=== PATIENT | male | born 1950 | race Caucasian/White ===

== ENCOUNTER 2018-03-16 15:32 | Emergency (ER) | payer MEDICARE, OTHER ==
[~2018-03-16] VITALS: Ht 177.8 cm; Wt 74.8 kg
--- NOTE | 2018-03-16 15:55 | NUR ---
cough congestion and L testicular swelling x 4 days, nad noted, vss, resp even and unlabored, pt was put on monitor, waiting for md silva.
[2018-03-16 16:29] LABS: BASOPHILS % (AUTO) 0.2 % (0.0-2.0); EOSINOPHILS % (AUTO) 0.7 % (0.0-6.0); HEMATOCRIT 34 % (39-51); HEMOGLOBIN 11.6 g/dL (13.5-17.5); LYMPHOCYTES # (AUTO) 0.7 /CMM (0.8-4.8); LYMPHOCYTES % (AUTO) 7.9 % (20.0-44.0); MEAN CORPUSCULAR HGB CONC 35 g/dl (31.0-36.0); MEAN CORPUSCULAR VOLUME 90 fL (80-96); MONOCYTES # (AUTO) 0.5 /CMM (0.1-1.30); MONOCYTES % (AUTO) 5.8 % (2.0-12.0); NEUTROPHILS # (AUTO) 7.6 /CMM (1.8-8.9); NEUTROPHILS % (AUTO) 85.4 % (43.0-81.0); PLATELET COUNT (AUTO) 213 /CMM (150-450); RDW COEFFICIENT OF VARIATION 13.4 (11.5-15.0); RED BLOOD CELL COUNT(AUTO) 3.74 MIL/uL (4.5-6.0); WHITE BLOOD COUNT (AUTO) 8.9 K/uL (4.3-11.0)
[2018-03-16] MEDS ORDERED: ALBUTEROL FS 2.5 MG/3 ML VIAL.NEB NEB ONE (16:30)
[2018-03-16 16:39] LABS: CALCIUM, SERUM 10.8 mg/dL (8.5-10.1); CREATININE 1.7 mg/dL (0.6-1.3); POTASSIUM 4.2 mmol/L (3.5-5.1)
[2018-03-16] MEDS ORDERED: IV NS 0.9% 500 ML BAG IV ONE (17:00)
[2018-03-16] MEDS ORDERED: IV NS 0.9% 1,000 ML BAG IV ONE (17:00)
--- NOTE | 2018-03-16 17:57 | NUR ---
CALLED DR. SUÁREZ
[2018-03-16] MEDS ORDERED: LEVOFLOXACIN 750 MG /D5W 150ML PIGGYBACK IV ONE (18:00)
[2018-03-16 18:07] LABS: APPEARANCE,URINE Clear (CLEAR); BILIRUBIN,URINE Negative (NEGATIVE); BLOOD, URINE Trace-intact Ery/uL (NEGATIVE); COLOR,URINE Yellow (YELLOW); KETONES,URINE Negative (NEGATIVE); LEUKOCYTE ESTERASE ,URINE Small (NEGATIVE); NITRITE, URINE Positive (NEGATIVE); PROTEIN,URINE 30 mg/dl (NEGATIVE); UGLUCOSE Negative (NEGATIVE); UROBILINOGEN,URINE 0.2 EU/dL (0.2)
[2018-03-16] MEDS ORDERED: ALBUTEROL FS 2.5 MG/3 ML VIAL.NEB ONE (18:13)
[2018-03-16 18:34] LABS: BACTERIA,URINE 2+ /HPF (None Seen); SQUAMOUS EPITHELIAL CELL,UR Moderate /HPF (None Seen)
--- NOTE | 2018-03-16 20:17 | NUR ---
Patient discharged to home in stable condition. Written and verbal after care instructions given. Patient verbalizes understanding of instruction.IV removed. Catheter intact and site benign. Pressure and 4x4 applied to site. No bleeding noted. Prescription given.
[2018-03-16 20:19] VITALS: BP 122/70
== END 2018-03-16 20:24 | disposition home or self-care (01) ==
LOC: ER 15:38
DX: J20.9 Acute bronchitis, unspecified (principal); N45.2 Orchitis; I10 Essential (primary) hypertension; Z85.528 Personal history of other malignant neoplasm of kidney
CPT/HCPCS: 36415; 71045; 76870; 80048; 81001; 83880; 85025; 87086; 93005; 94640 ×2; 96365; 99285; A4606; J1956; J7030; J7040; 81000-TC; Z7610

== ENCOUNTER 2020-01-28 10:35 | Emergency (ER) | payer MEDICARE, OTHER ==
[~2020-01-28] VITALS: Ht 175.3 cm; Wt 77.6 kg
[2020-01-28 10:41] VITALS: BP 116/62
== END 2020-01-28 11:19 | disposition home or self-care (01) ==
LOC: ER 10:43
DX: K61.1 Rectal abscess (principal); Z90.5 Acquired absence of kidney

== ENCOUNTER 2020-07-31 22:33 | Inpatient (IN) | payer MEDICARE, OTHER ==
[~2020-07-31] VITALS: Ht 170.2 cm; Wt 70.3 kg
[2020-07-31] MEDS ORDERED: IV NS 0.9% 1,000 ML BAG IV ONE (23:00)
--- NOTE | 2020-07-31 23:00 | NUR ---
PT WAS BIBS TO THE ER FOR C/O WORSENING WAKNESS FOR THE PAST 2 WEAKS. PT DENIED ANY OTHER SYMPTOMS SUCH H/A, DIZZINESS, V/O. PT WAS PLACED ON A MONITOR . VSS. WILL CONT TO MONITOR,
[2020-07-31 23:14] LABS: BASOPHILS % (AUTO) 0.4 % (0.0-2.0); HEMATOCRIT 37 % (39-51); HEMOGLOBIN 12.6 g/dL (13.5-17.5); LYMPHOCYTES # (AUTO) 1.2 /CMM (0.8-4.8); LYMPHOCYTES % (AUTO) 15.1 % (20.0-44.0); MEAN CORPUSCULAR HGB CONC 34 g/dl (31.0-36.0); MEAN CORPUSCULAR VOLUME 96 fL (80-96); MONOCYTES # (AUTO) 0.4 /CMM (0.1-1.30); MONOCYTES % (AUTO) 5.3 % (2.0-12.0); NEUTROPHILS # (AUTO) 6.1 /CMM (1.8-8.9); NEUTROPHILS % (AUTO) 76.2 % (43.0-81.0); PLATELET COUNT (AUTO) 195 /CMM (150-450); RED BLOOD CELL COUNT(AUTO) 3.89 MIL/uL (4.5-6.0)
[2020-07-31 23:29] LABS: CARBON DIOXIDE 29 mmol/L (21-32); CHLORIDE 98 mmol/L (98-107); CREATININE 3.3 mg/dL (0.6-1.3); GLUCOSE 122 mg/dL (74-106); POTASSIUM 4.4 mmol/L (3.5-5.1); SODIUM SERUM 134 mmol/L (136-145); UREA NITROGEN, BLOOD 78 mg/dL (7-18)
[2020-07-31 23:36] LABS: CALCIUM, SERUM 14.1 mg/dL (8.5-10.1)
[2020-07-31 23:51] LABS: ALBUMIN 3.5 g/dL (3.4-5.0); BILIRUBIN,DIRECT 0.1 mg/dL (0.0-0.2); BILIRUBIN,TOTAL 0.3 mg/dL (0.2-1.0)
--- NOTE | 2020-08-01 00:08 | NUR ---
COVID SWAB OBTAINED AND SENT TO LAB
--- NOTE | 2020-08-01 00:11 | NUR ---
PT WAS TAKEN TO CT
[2020-08-01] MEDS ORDERED: IV NS 0.9% 1,000 ML IV ONE (00:30)
--- NOTE | 2020-08-01 00:41 | NUR ---
BED ASSIGNMENT 314-2
--- NOTE | 2020-08-01 01:05 | NUR ---
REPORT GIVEN TO VAIBHAV,
[2020-08-01 01:36] VITALS: BP 158/85
[2020-08-01 01:40] VITALS: BP 155/85
--- NOTE | 2020-08-01 01:40 | NUR ---
rn ms admitting opening notes received patient from er via gurney safely ambulated to bed steady gait. alert and oriented x4, respirations even and unlabored with equal rise and fall of chest, denies any pain or discomfort, states he feel generalized weakness and lethargy the past couple days. iv site to right ac #18 g intact and patent, received with 1l normal saline infusing from ER ,will continue to infuse until completed.denies any skin issues or wounds, patient belongings checked and logged in belongings list, he has rich with him and prefers to keep it with him and not place in safe made aware of risks prefers to keep it with his wallet. pocket knife placed in 3w in safe. patient states he refuses all medications, lovenox refused despite education, oriented to staff and call light and kept within reach, all needs attended will continue to monitor and attend to needs, remains comfortable at this time.
[2020-08-01] MEDS ORDERED: IV 1/2NS 1000 ML 1,000 ML IV PRN (01:45)
--- NOTE | 2020-08-01 01:58 | NUR ---
[facility].
[2020-08-01] MEDS ORDERED: MAG HYDROX/AL HYDROX/SIMETH 30 ML UDC PO PRN (02:00)
[2020-08-01] MEDS ORDERED: ACETAMINOPHEN 325 MG TABLET PO PRN (02:00)
[2020-08-01] MEDS ORDERED: ZOLPIDEM TARTRATE 5 MG TABLET PO PRN (02:00)
[2020-08-01] MEDS ORDERED: Z GUARD REMEDY 2 OZ OINT TP PRN (02:00)
[2020-08-01] MEDS ORDERED: ONDANSETRON HCL/PF 4 MG/2 ML VIAL IVP PRN (02:00)
[2020-08-01] MEDS ORDERED: MAGNESIUM HYDROXIDE 30 ML UDC PO PRN (02:00)
[2020-08-01] MEDS ORDERED: HYDROCODONE/APAP 5/325MG TABLET PO PRN (02:00)
[2020-08-01] MEDS: ENOXAPARIN SODIUM 30 MG/0.3 ML DISP.SYRIN SQ SCH ×2 (02:30→21:00)
--- NOTE | 2020-08-01 07:20 | NUR ---
rn CLOSING notes patient in bed easily arousable, steady gait. alert and oriented x4, respirations even and unlabored with equal rise and fall of chest, denies any pain or discomfort, iv site to right ac #18 g intact and patent, received with 1l normal saline infusing from ER and still infusing endorsed to next shift. will continue to infuse until completed.denies any skin issues or wounds, has rich with him and prefers to keep it with him and not place in safe made aware of risks prefers to keep it with his wallet. pocket knife placed in 3w in safe call light kept within reach, all needs attended will continue to monitor and attend to needs, remains comfortable at this time and will endorse to next shift.
[2020-08-01] MEDS: PANTOPRAZOLE 40 MG TABLET.DR PO SCH (07:30)
--- NOTE | 2020-08-01 07:41 | NUR ---
MS RN NOTES PATIENT RECEIVED IN BED, RESTING COMFORTABLY. ALERT AND ORIENTED X 4. ON ROOM AIR WITH NO SIGNS OF RESPIRATORY DISTRESS AT THIS TIME, WITH EVEN NON-LABORED BREATHING, AND NO SOB NOTED. PATIENT SKIN WARM AND DRY TO TOUCH, IV ACCESS INTACT AND PATENT. PATIENT DENIES ANY PAIN OR DISCOMFORT AT THIS TIME. ENDORSE BY NURSE, PATIENT POCKET KNIFE IN SAFE AT NURSING STATION. PATIENT WOULD RATHER KEEP MONEY WITH HIM RATHER THAN IN SAFE. SAFETY PRECAUTIONS IMPLEMENTED WITH BED LOCKED, BED IN THE LOWEST POSITION, BILATERAL SIDE RAILS UP, AND CALL LIGHT WITHIN EASY REACH. WILL CONTINUE TO MONITOR PATIENT.
--- NOTE | 2020-08-01 08:10 | NUR ---
MS RN NOTES PATIENT REFUSED PROTONIX 40 mg po ORDERED, STATES HE DOES NOT WANT TO TAKE ANY MEDICATION. EDUCATED THE PATIENT THE BENEFITS OF THE MEDICATIONS, PATIENT STILL REFUSED. WILL CONTINUE TO MONITOR PATIENT.
[2020-08-01 08:53] VITALS: BP 121/71
--- NOTE | 2020-08-01 11:15 | NUR ---
MS RN NOTES PATIENT SEEN AND EXAMINED BY HOSPITALIST, MAT MIDDLETON DNP. PATIENT DISCUSSES CODE STATUS WITH HOSPITALIST, PER PATIENT WISHES DNR/DNI CODE STATUS. AWARE AND POLST IN PATIENT CHART. WILL CONTINUE TO MONITOR PATIENT.
--- NOTE | 2020-08-01 16:26 | NUR ---
12:45pm This SW met with the patient at bedside for advanced directive, code status and living will consult requested by Beatriz Vázquez DO. Patient presented to [facility] complaining of generalized weakness for the past two weeks. Patient was alert and oriented x4. Patient is a 69-year-old male who confirmed demographics on the face sheet including date of , social security, and home address. Patient resides with sister Kaela who is the patients primary contact. Patient reports that he is able to perform ADLs and IADLs independently. Patient currently receives $900 in Social Security. Patient reports moderate alcohol use and did not want to elaborate when this SW asked. Patient denies drug and cigarette use. Patient denies auditory and visual hallucinations. Patient denies suicidal or homicidal ideation. This SW provided the patient with resource of [facility] Directive Form for patient to review. This SW informed the patient that it is a form to provide instructions of his health wishes. This SW to remain available for all needs regarding this patient
[2020-08-01 16:55] VITALS: BP 147/82
--- NOTE | 2020-08-01 18:25 | NUR ---
MS RN NOTES PATIENT IN BED, WATCHING TV COMFORTABLY. ALERT AND ORIENTED X 4. ON ROOM AIR WITH NO SIGNS OF RESPIRATORY DISTRESS AT THIS TIME, WITH EVEN NON-LABORED BREATHING, AND NO SIGNS OF SOB NOTED AT THIS TIME. PATIENT SKIN WARM AND DRY TO TOUCH. IV ACCESS INTACT AND PATENT, INFUSING IV NORMAL SALINE 0.45% AT 75ml/hr. MET ALL OF PATIENT'S NEEDS, DENIES PAIN OR DISCOMFORT AT THIS TIME. SAFETY PRECAUTIONS IMPLEMENTED WITH BED LOCKED, BED IN THE LOWEST POSITION, BILATERAL SIDE RAILS UP, AND CALL LIGHT WITHIN EASY REACH OF THE PATIENT. WILL ENDORSE PLAN OF CARE TO UPCOMING NURSE.
--- NOTE | 2020-08-01 19:05 | NUR ---
rn opening notes patient in bed easily arousable, steady gait. alert and oriented x4, respirations even and unlabored with equal rise and fall of chest, denies any pain or discomfort, iv site to right ac #18 g intact and patent, ivf infusing as ordered .denies any skin issues or wounds, oriented to to staff and call light kept within reach, all needs attended will continue to monitor and attend to needs, remains comfortable at this time and will continue to monitor.
[2020-08-01 20:00] VITALS: BP_SYST 137; BP_SYST 157; BP_DIAS 81
--- NOTE | 2020-08-01 21:01 | NUR ---
RN MS NOTES PATIENT REFUSED LOVENOX.
--- NOTE | 2020-08-01 22:23 | NUR ---
rn ms notes patient requested shower made aware. new order ok to shower.
[2020-08-01] MEDS: IV 1/2NS 1000 ML 1,000 ML IV PRN (22:48)
--- NOTE | 2020-08-02 06:46 | NUR ---
rn closing notes patient in bed easily arousable, steady gait. alert and oriented x4, respirations even and unlabored with equal rise and fall of chest, denies any pain or discomfort, iv site to right ac #18 g intact and patent, ivf infusing as ordered .denies any skin issues or wounds, call light kept within reach, all needs attended will continue to monitor and attend to needs, remains comfortable at this time and will continue to monitor and endorse to next shift.
[2020-08-02 07:19] LABS: BASOPHILS % (AUTO) 0.3 % (0.0-2.0); HEMATOCRIT 36 % (39-51); HEMOGLOBIN 11.9 g/dL (13.5-17.5); LYMPHOCYTES % (AUTO) 19.2 % (20.0-44.0); MEAN CORPUSCULAR HGB CONC 33 g/dl (31.0-36.0); MEAN CORPUSCULAR VOLUME 97 fL (80-96); MONOCYTES # (AUTO) 0.3 /CMM (0.1-1.30); MONOCYTES % (AUTO) 5.7 % (2.0-12.0); NEUTROPHILS # (AUTO) 3.7 /CMM (1.8-8.9); NEUTROPHILS % (AUTO) 70.8 % (43.0-81.0); PLATELET COUNT (AUTO) 167 /CMM (150-450); RED BLOOD CELL COUNT(AUTO) 3.68 MIL/uL (4.5-6.0); WHITE BLOOD COUNT (AUTO) 5.3 K/uL (4.3-11.0)
[2020-08-02] MEDS: PANTOPRAZOLE 40 MG TABLET.DR PO SCH (07:30)
--- NOTE | 2020-08-02 07:30 | NUR ---
CORRECTION: 1/2 NS running 150 mls/hr
--- NOTE | 2020-08-02 07:30 | NUR ---
MS/RN OPENING NOTES Patient resting in bed, A&O x 4. Breathing even and non-labored on RA, no SOB noted. No respiratory or cardiac distress noted. Denies any pain and discomfort at the moment. IV access on R AC #18 gauge, patent and intact, and running 1/2 NS @ 75 mls/hr. No infection, infiltration, or bleeding noted on site. Sensation from all peripheral extremities intact. Fall precautions maintained. Instructed pt to use call light when in need of assistance. Will continue to monitor for any changes in condition.
[2020-08-02 07:33] LABS: CREATININE 2.8 mg/dL (0.6-1.3); MAGNESIUM 2.1 mg/dL (1.8-2.4); PHOSPHORUS 4.1 mg/dL (2.5-4.9); POTASSIUM 4.5 mmol/L (3.5-5.1)
[2020-08-02 07:44] LABS: THYROID STIMULATING HORMONE 2.504 uIU/mL (0.358-3.74)
[2020-08-02 08:00] VITALS: BP 105/62
[2020-08-02] MEDS: IV 1/2NS 1000 ML 1,000 ML IV PRN ×2 (09:01→17:18)
[2020-08-02] MEDS ORDERED: FUROSEMIDE 100 MG/10 ML VIAL IV ONE (10:30)
--- NOTE | 2020-08-02 18:30 | NUR ---
MS/RN CLOSING NOTES Patient lying in bed, watching TV, A&O x 4. No complaints of pain/discomfort throughout shift. Remains stable, VSS, afebrile. Breathing even and non-labored on RA, no SOB noted. No respiratory or cardiac distress noted. IV access on R AC #18 gauge, remains patent and intact, and running 1/2 NS @ 150 mls/hr. Call light within reach, side rails up x 2, bed locked to its lowest position. Instructed pt to use call light when in need of assistance. Will endorse to retail shift leader nurse.
--- NOTE | 2020-08-02 19:30 | NUR ---
MS/RN OPENING NOTES RECEIVED PATIENT IN BED RESTING WATCHING TV. PATIENT IS ALERT AND ORIENTED X 4. NO COMPLAINS OF PAIN AT THIS TIME. PATIENT IS ON ROOM AIR TOLERATING WELL. NO SIGNS OF SOB OR RESPIRATORY DISTRESS NOTED. PATIENT IS IN NO SIGNS OF DISTRESS. PATIENT IS ABLE TO AMBULATE BY SELF. PATIENT HAS RIGHT IV AC #[address] RUNNING 1/2 NS AT 150 ML/HR. SAFETY MEASURES ARE IN PLACE, BED IS LOCKED AND PLACED IN THE LOW POSITION, SIDE RAILS UP X 2. CALL LIGHT IS WITHIN REACH. WILL CONTINUE TO MONITOR PATIENT THROUGH OUT SHIFT.
[2020-08-02 20:00] VITALS: BP 109/71
[2020-08-02] MEDS: ENOXAPARIN SODIUM 30 MG/0.3 ML DISP.SYRIN SQ SCH (21:00)
[2020-08-03 06:18] LABS: BASOPHILS % (AUTO) 0.4 % (0.0-2.0); EOSINOPHILS % (AUTO) 4.7 % (0.0-6.0); HEMATOCRIT 34 % (39-51); HEMOGLOBIN 11.4 g/dL (13.5-17.5); LYMPHOCYTES # (AUTO) 1.4 /CMM (0.8-4.8); LYMPHOCYTES % (AUTO) 19.5 % (20.0-44.0); MEAN CORPUSCULAR HGB CONC 34 g/dl (31.0-36.0); MEAN CORPUSCULAR VOLUME 96 fL (80-96); MONOCYTES # (AUTO) 0.4 /CMM (0.1-1.30); MONOCYTES % (AUTO) 5.8 % (2.0-12.0); NEUTROPHILS # (AUTO) 4.9 /CMM (1.8-8.9); NEUTROPHILS % (AUTO) 69.6 % (43.0-81.0); PLATELET COUNT (AUTO) 176 /CMM (150-450); RED BLOOD CELL COUNT(AUTO) 3.52 MIL/uL (4.5-6.0)
[2020-08-03 06:43] LABS: ALBUMIN 2.9 g/dL (3.4-5.0); BILIRUBIN,TOTAL 0.2 mg/dL (0.2-1.0); CREATININE 2.9 mg/dL (0.6-1.3); MAGNESIUM 1.9 mg/dL (1.8-2.4); PHOSPHORUS 3.5 mg/dL (2.5-4.9); POTASSIUM 4.2 mmol/L (3.5-5.1)
--- NOTE | 2020-08-03 06:51 | NUR ---
MS/RN CLOSING NOTES PATIENT IS RESTING IN BED. PATIENT IS ALERT AND ORIENTED X 4. PATIENT STATES NO PAIN AT THIS TIME. PATIENT IS ON ROOM AIR TOLERATING WELL. NO SIGNS OF SOB OR RESPIRATORY DISTRESS NOTED. PATIENT IS IN NO SIGNS OF DISTRESS. PATIENT IS ABLE TO AMBULATE BY SELF. PATIENT HAS RIGHT IV AC #[address] RUNNING 1/2 NS AT 150 ML/HR. ALL OF THE PATINETS NEEDS HAVE BEEN MET DURING SHIFT. SAFETY MEASURES ARE IN PLACE, BED IS LOCKED AND PLACED IN THE LOW POSITION, SIDE RAILS UP X 2. CALL LIGHT IS WITHIN REACH. WILL ENDORSE CARE TO DAY SHIFT.
[2020-08-03] MEDS: PANTOPRAZOLE 40 MG TABLET.DR PO SCH ×2 (07:30→09:18)
[2020-08-03 08:00] VITALS: BP 106/63
--- NOTE | 2020-08-03 10:00 | NUR ---
IV LEAKING,PT. DID NOT WANT RESTARTED.
--- NOTE | 2020-08-03 11:30 | NUR ---
BILL CERTIFICATION OFFICER IN TO VISIT.
[2020-08-03 16:00] VITALS: BP 126/78
[2020-08-03] MEDS ORDERED: CALCITONIN,SALMON,SYNTHETIC 3.7 ML SPRAY.PUMP NS SCH (16:00)
[2020-08-03] MEDS ORDERED: CALC3.7S NS (16:01)
--- NOTE | 2020-08-03 17:00 | NUR ---
DR. BERRIOS AND PT'S SISTER CALLING [facility] ORDER GIVEN.PAPERS SIGNED.BELONGINGS TO PT. TO FOLLOW UP WITH MD'S.WALKED TO LOBBY.PT. TO DRIVE HIMSELF HOME.
[2020-08-04 08:08] LABS: IMMUNOGLOBULIN A, SERUM 94 mg/dL (61-437); IMMUNOGLOBULIN G, SERUM 602 mg/dL (603-1613); IMMUNOGLOBULIN M, SERUM 37 mg/dL (20-172)
[2020-08-04 14:09] LABS: *SPE A/G RATIO 1.3 (0.7-1.7); *SPE ALBUMIN 3.1 g/dL (2.9-4.4); *SPE ALPHA-1-GLOBULIN 0.2 g/dL (0.0-0.4); *SPE ALPHA-2-GLOBULIN 0.7 g/dL (0.4-1.0); *SPE BETA GLOBULIN 0.9 g/dL (0.7-1.3); *SPE GLOBULIN, TOTAL 2.3 g/dL (2.2-3.9); *SPE M-SPIKE Not Observed g/dL (Not Observed); *SPEGAMMA GLOBULIN 0.5 g/dL (0.4-1.8)
== END 2020-08-03 17:48 | disposition home or self-care (01) | DRG 640 ==
LOC: ER 22:37 → MED 08-01 00:45
PROVIDERS: ADMIT Nurse Practitioner Acute Care; ATTEND Nurse Practitioner Acute Care
DX: E83.52 Hypercalcemia (principal); N17.0 Acute kidney failure with tubular necrosis; C78.02 Secondary malignant neoplasm of left lung; C78.01 Secondary malignant neoplasm of right lung; C79.51 Secondary malignant neoplasm of bone; C77.9 Secondary and unspecified malignant neoplasm of lymph node, unspecified; Z85.528 Personal history of other malignant neoplasm of kidney; E86.9 Volume depletion, unspecified; D64.9 Anemia, unspecified; I25.10 Atherosclerotic heart disease of native coronary artery without angina pectoris; E67.3 Hypervitaminosis D; Z90.5 Acquired absence of kidney; R53.1 Weakness; J44.9 Chronic obstructive pulmonary disease, unspecified; R91.1 Solitary pulmonary nodule; G56.20 Lesion of ulnar nerve, unspecified upper limb
CPT/HCPCS: 36415; 71045-TC; 71250-TC; 80048-TC; 80053-TC; 80061-TC; 80076-TC; 82306; 82310-TC; 82330; 82652; 82728-TC; 82784; 83540-TC; 83735-TC; 83970; 84100-TC; 84155; 84165; 84443-TC; 84484-TC; 85025-TC; 86334; 87081-TC; 97116-TC; 97530-TC; C9803-CS; G0378; J1940; J3490; J7030; J7042

== ENCOUNTER 2022-04-05 14:23 | Emergency (ER) | payer MEDICARE, OTHER ==
[~2022-04-05] VITALS: Ht 177.8 cm; Wt 79.4 kg
[~2022-04-05 14:23] MED LIST: CALC3.7S NS
--- NOTE | 2022-04-05 14:32 | NUR ---
Came by himself this 71yo/male patient with c/o left shoulder pain while doing exercise 10/10 pain scale. Placed comfortably in bed. Vitals checked.
--- NOTE | 2022-04-05 14:42 | NUR ---
SEEN BY DR COOK AT BEDSIDE
--- NOTE | 2022-04-05 14:47 | NUR ---
XRAY DONE AT BEDSIDE.
[2022-04-05] MEDS ORDERED: IBUPROFEN 600 MG TABLET ONE (14:53)
--- NOTE | 2022-04-05 14:57 | NUR ---
COLD PACK APPLIED ON AFFECTED AREA
[2022-04-05] MEDS ORDERED: IBUPROFEN 600 MG TABLET PO ONE (15:00)
[2022-04-05] MEDS ORDERED: IBUP-1955 PO (15:19)
--- NOTE | 2022-04-05 15:36 | NUR ---
Patient discharged to home in stable condition. Written and verbal after care instructions given. Patient verbalizes understanding of instruction.
[2022-04-05 15:37] VITALS: BP 142/81
== END 2022-04-05 15:38 | disposition home or self-care (01) ==
LOC: ER 14:30
DX: M25.512 Pain in left shoulder (principal); Z85.53 Personal history of malignant neoplasm of renal pelvis; Z90.5 Acquired absence of kidney; Z79.899 Other long term (current) drug therapy
CPT/HCPCS: 73030-TC

== ENCOUNTER 2022-12-11 12:34 | Inpatient (IN) | payer MEDICARE, OTHER ==
[~2022-12-11] VITALS: Ht 177.8 cm; Wt 83.0 kg
[~2022-12-11 12:34] MED LIST changes: +IBUP-1955 PO
[2022-12-11] MEDS ORDERED: predniSONE 20 MG TABLET ONE (13:26)
[2022-12-11] MEDS ORDERED: IPRATROPIUM NEB FS 0.5 MG/2.5 ML AMPUL.NEB NEB ONE (13:30)
[2022-12-11] MEDS ORDERED: predniSONE 20 MG TABLET PO ONE (13:30)
[2022-12-11] MEDS ORDERED: ALBUTEROL FS 2.5 MG/3 ML VIAL.NEB CONTNEB ONE (13:30)
[2022-12-11 13:46] LABS: ABG BASE EXCESS -1.6 mmol/L; ABG OXYGEN SATURATION 97.7 % (92.0-98.5); ABG PCO2 32.8 mmHg (35.0-45.0); ABG PH 7.435 (7.350-7.450); ABG PO2 96.9 mmHg (75.0-100.0); COHb 1.3 % (0.5-1.5); MetHb 0.3 % (0.0-1.5); O2Hb 96.1 % (94.0-97.0); SITE, ABG Right Radial; VENT MODE, BG 2L NC
[2022-12-11 13:56] LABS: BASOPHILS % (AUTO) 0.2 % (0.0-2.0); HEMATOCRIT 52 % (39-51); HEMOGLOBIN 16.8 g/dL (13.5-17.5); LYMPHOCYTES # (AUTO) 0.4 K/uL (0.8-4.8); LYMPHOCYTES % (AUTO) 5.1 % (20.0-44.0); MEAN CORPUSCULAR HGB CONC 33 g/dl (31.0-36.0); MEAN CORPUSCULAR VOLUME 88 fL (80-96); MONOCYTES # (AUTO) 0.8 K/uL (0.1-1.30); MONOCYTES % (AUTO) 9.8 % (2.0-12.0); NEUTROPHILS # (AUTO) 6.8 K/uL (1.8-8.9); NEUTROPHILS % (AUTO) 81.9 % (43.0-81.0); PLATELET COUNT (AUTO) 152 K/uL (150-450); RED BLOOD CELL COUNT(AUTO) 5.91 MIL/uL (4.5-6.0); WHITE BLOOD COUNT (AUTO) 8.4 K/uL (4.3-11.0)
[2022-12-11] MEDS ORDERED: IPRATROPIUM NEB FS 0.5 MG/2.5 ML AMPUL.NEB ONE (14:12)
[2022-12-11] MEDS ORDERED: ALBUTEROL FS 2.5 MG/3 ML VIAL.NEB ONE (14:12)
[2022-12-11] MEDS ORDERED: FUROSEMIDE 40 MG/4 ML VIAL IV ONE (14:30)
[2022-12-11 14:52] LABS: CALCIUM, SERUM 8.5 mg/dL (8.5-10.1); CARBON DIOXIDE 24 mmol/L (21-32); CHLORIDE 106 mmol/L (98-107); CREATININE 1.3 mg/dL (0.6-1.3); GLUCOSE 119 mg/dL (74-106); POTASSIUM 3.9 mmol/L (3.5-5.1); SODIUM SERUM 137 mmol/L (136-145); UREA NITROGEN, BLOOD 39 mg/dL (7-18)
[2022-12-11] MEDS ORDERED: FUROSEMIDE 40 MG/4 ML VIAL ONE (15:00)
[2022-12-11 15:19] LABS: ALANINE AMINOTRANSFERASE 73 U/L (12-78); ALBUMIN 2.9 g/dL (3.4-5.0); ALKALINE PHOSPHATASE 69 U/L (46-116); ASPARTATE AMINOTRANSFERASE 54 U/L (15-37); BILIRUBIN,DIRECT 0.1 mg/dL (0.0-0.2); BILIRUBIN,TOTAL 0.6 mg/dL (0.2-1.0); TOTAL PROTEIN, SERUM 6.6 g/dL (6.4-8.2)
[2022-12-11] MEDS ORDERED: IOHEXOL-350 100 ML VIAL IV ONE (15:30)
[2022-12-11] MEDS ORDERED: IV NS 0.9% 250 ML IV ONE (15:30)
[2022-12-11] MEDS ORDERED: HEPARIN INFUSION/D5W 500 ML IV ONE (17:30)
[2022-12-11] MEDS ORDERED: ONDANSETRON HCL/PF 4 MG/2 ML VIAL IVP PRN (18:30)
[2022-12-11] MEDS ORDERED: ACETAMINOPHEN 325 MG TABLET PO PRN (18:30)
[2022-12-11] MEDS ORDERED: MORPHINE SULFATE INJ 2 MG/ML DISP.SYRIN IV PRN (18:30)
[2022-12-11] MEDS ORDERED: ALBUTEROL FS 2.5 MG/0.5 ML VIAL.NEB NEB PRN (20:00)
[2022-12-11 22:25] VITALS: BP 137/88
[2022-12-11] MEDS ORDERED: CEFEPIME 1 GM VIAL ONE ×2 (22:58→23:01)
[2022-12-11] MEDS: APIXABAN 5 MG TABLET PO SCH (23:04)
[2022-12-11] MEDS: CEFEPIME 2 GM in IV D5W 100 ML IV SCH (23:08)
[2022-12-12] VITALS: BP 112/80
[2022-12-12] MEDS ORDERED: IPRATROPIUM/ALBUTEROL INHALER IH SCH
[2022-12-12] MEDS ORDERED: TEMAZEPAM 7.5 MG CAPSULE PO PRN (00:30)
[2022-12-12 04:00] VITALS: BP 115/67
[2022-12-12] MEDS: CEFEPIME 2 GM in IV D5W 100 ML IV SCH (04:46)
[2022-12-12 06:49] LABS: BASOPHILS % (AUTO) 0.2 % (0.0-2.0); EOSINOPHILS % (AUTO) 0.7 % (0.0-6.0); HEMATOCRIT 49 % (39-51); HEMOGLOBIN 16.3 g/dL (13.5-17.5); LYMPHOCYTES # (AUTO) 0.5 K/uL (0.8-4.8); MEAN CORPUSCULAR HGB CONC 34 g/dl (31.0-36.0); MEAN CORPUSCULAR VOLUME 87 fL (80-96); MONOCYTES # (AUTO) 1.1 K/uL (0.1-1.30); MONOCYTES % (AUTO) 10.9 % (2.0-12.0); NEUTROPHILS # (AUTO) 8.1 K/uL (1.8-8.9); NEUTROPHILS % (AUTO) 83.2 % (43.0-81.0); PLATELET COUNT (AUTO) 168 K/uL (150-450); WHITE BLOOD COUNT (AUTO) 9.7 K/uL (4.3-11.0)
[2022-12-12 07:00] VITALS: BP 116/84
[2022-12-12 07:01] LABS: ALBUMIN 2.6 g/dL (3.4-5.0); BILIRUBIN,TOTAL 0.4 mg/dL (0.2-1.0); CALCIUM, SERUM 8.4 mg/dL (8.5-10.1); CREATININE 1.3 mg/dL (0.6-1.3); MAGNESIUM 1.9 mg/dL (1.8-2.4); PHOSPHORUS 3.2 mg/dL (2.5-4.9); POTASSIUM 3.3 mmol/L (3.5-5.1); TOTAL PROTEIN, SERUM 6.4 g/dL (6.4-8.2)
[2022-12-12] MEDS: APIXABAN 5 MG TABLET PO SCH (08:12)
[2022-12-12] MEDS: IPRATROPIUM NEB FS 0.5 MG/2.5 ML AMPUL.NEB NEB SCH ×2 (08:55→09:55)
[2022-12-12] MEDS ORDERED: CEFEPIME 2 GM in IV D5W 100 ML IV SCH ×2 (09:00→21:00)
[2022-12-12] MEDS ORDERED: ALBU18HF2 INH (10:17)
[2022-12-12] MEDS ORDERED: APIX5TAB4 PO (10:17)
[2022-12-12] MEDS ORDERED: POTASSIUM CHLORIDE 20 MEQ TAB.PRT.SR PO SCH (11:00)
== END 2022-12-12 10:45 | disposition home or self-care (01) | DRG 176 ==
LOC: ER 12:38 → TELE 21:31
PROVIDERS: ADMIT Internal Medicine; ATTEND Internal Medicine
DX: I26.99 Other pulmonary embolism without acute cor pulmonale (principal); E44.1 Mild protein-calorie malnutrition; Z85.528 Personal history of other malignant neoplasm of kidney; Z20.822 Contact with and (suspected) exposure to COVID-19; E88.09 Other disorders of plasma-protein metabolism, not elsewhere classified; Z85.118 Personal history of other malignant neoplasm of bronchus and lung; Z79.899 Other long term (current) drug therapy
CPT/HCPCS: 36415; 36600; 71045-TC; 80048-TC; 80053-TC; 80076-TC; 82803-TC; 83735-TC; 83880; 84100-TC; 84484-TC; 85025-TC; 85378-TC; 85610-TC; 85730-TC; 87081-TC; 93307-TC; C9803; G0378; J0692; J1644; J1940; J7050; J7060; Q9967

== ENCOUNTER 2024-03-23 20:14 | Inpatient (IN) | payer MEDICARE, OTHER ==
[~2024-03-23] VITALS: Ht 177.8 cm; Wt 99.3 kg
[~2024-03-23 20:14] MED LIST changes: +ALBU18HF2 INH; +APIX5TAB4 PO
[2024-03-23 22:34] LABS: EOSINOPHILS % (AUTO) 0.3 % (0.0-6.0); HEMATOCRIT 47 % (39-51); HEMOGLOBIN 15.5 g/dL (13.5-17.5); LYMPHOCYTES # (AUTO) 0.5 K/uL (0.8-4.8); LYMPHOCYTES % (AUTO) 2.8 % (20.0-44.0); MEAN CORPUSCULAR HEMOGLOBIN 31 PG (26.0-33.0); MEAN CORPUSCULAR HGB CONC 33 g/dl (31.0-36.0); MEAN CORPUSCULAR VOLUME 93 fL (80-96); MONOCYTES # (AUTO) 1.6 K/uL (0.1-1.30); MONOCYTES % (AUTO) 8.9 % (2.0-12.0); NEUTROPHILS # (AUTO) 15.7 K/uL (1.8-8.9); PLATELET COUNT (AUTO) 192 K/uL (150-450); RED BLOOD CELL COUNT(AUTO) 5.01 MIL/uL (4.5-6.0); RED CELL DISTRIBUTION WIDTH 13.7 % (11.5-15.0); WHITE BLOOD COUNT (AUTO) 17.9 K/uL (4.3-11.0)
[2024-03-23 23:06] LABS: CALCIUM, SERUM 10.2 mg/dL (8.5-10.1); CARBON DIOXIDE 30 mmol/L (21-32); CHLORIDE 103 mmol/L (98-107); CREATININE 1.9 mg/dL (0.6-1.3); GLUCOSE 154 mg/dL (74-106); POTASSIUM 4.9 mmol/L (3.5-5.1); SODIUM SERUM 137 mmol/L (136-145); UREA NITROGEN, BLOOD 41 mg/dL (7-18)
[2024-03-23] MEDS: ALBUTEROL FS 2.5 MG/3 ML VIAL.NEB NEB ONE (23:14)
[2024-03-23 23:15] VITALS: O2SAT 91
[2024-03-23] MEDS ORDERED: ALBUTEROL FS 2.5 MG/3 ML VIAL.NEB ONE (23:15)
[2024-03-23 23:22] LABS: NT-PRO BNP 471 pg/mL (0-125)
[2024-03-23 23:30] VITALS: O2SAT 95
[2024-03-24] VITALS (7 sets, daily range): BP systolic 113–125; BP diastolic 79–85; TEMP 98.1–98.6; O2SAT 91–96
[2024-03-24 00:44] LABS: ABG BASE EXCESS 1.4 mmol/L; ABG OXYGEN SATURATION 89.3 % (92.0-98.5); ABG PCO2 37.5 mmHg (35.0-45.0); ABG PH 7.445 (7.350-7.450); ABG PO2 54.5 mmHg (75.0-100.0); ABG TOTAL HEMOGLOBIN 16.2 G/dL (13.5-18.0); COHb 0.9 % (0.5-1.5); MetHb 0.3 % (0.0-1.5); O2Hb 88.2 % (94.0-97.0); SITE, ABG Right Radial
[2024-03-24] MEDS ORDERED: CEFTRIAXONE 1GM BAG (ER ONLY) 50 ML IV ONE (01:29)
[2024-03-24] MEDS: CEFTRIAXONE 1 G in IV D5W 50 ML IV ONE (01:40)
[2024-03-24] MEDS ORDERED: FUROSEMIDE 40 MG/4 ML VIAL ONE (01:57)
[2024-03-24] MEDS: FUROSEMIDE 40 MG/4 ML VIAL IV ONE (02:02)
[2024-03-24] MEDS ORDERED: MORPHINE SULFATE INJ 2 MG/ML DISP.SYRIN IV PRN (03:00)
[2024-03-24] MEDS ORDERED: ACETAMINOPHEN 325 MG TABLET PO PRN (03:00)
[2024-03-24] MEDS ORDERED: ALBUTEROL FS 2.5 MG/0.5 ML VIAL.NEB NEB PRN (03:00)
[2024-03-24] MEDS ORDERED: hydrALAZINE HCL IV 20 MG VIAL IV PRN (03:00)
[2024-03-24] MEDS ORDERED: ONDANSETRON HCL/PF 4 MG/2 ML VIAL IVP PRN (03:00)
[2024-03-24] MEDS: ALBUTEROL FS 2.5 MG/0.5 ML VIAL.NEB NEB SCH (07:35)
[2024-03-24] MEDS: IPRATROPIUM NEB FS 0.5 MG/2.5 ML AMPUL.NEB NEB SCH (07:35)
[2024-03-24] MEDS ORDERED: [UNRECOGNIZED DRUG - OTHER] PO (07:58)
[2024-03-24] MEDS ORDERED: TEST200V3 IM (07:58)
[2024-03-24] MEDS: APIXABAN 5 MG TABLET PO SCH (09:06)
[2024-03-24] MEDS: CEFEPIME 2 GM in IV D5W 100 ML IV SCH (09:09)
[2024-03-24] MEDS: VANCOMYCIN HCL 1.25 GM in IV D5W 250 ML IV ONE (09:10)
[2024-03-24] MEDS: LEVOFLOXACIN 750 MG /D5W 150ML 150 ML IV SCH (11:02)
[2024-03-25] VITALS (18 sets, daily range): BP systolic 106–123; BP diastolic 75–85; TEMP 97–98.1; O2SAT 83–100
[2024-03-25 07:46] LABS: BASOPHILS % (AUTO) 0.1 % (0.0-2.0); EOSINOPHILS # (AUTO) 0.1 K/uL (0.0-0.7); EOSINOPHILS % (AUTO) 0.4 % (0.0-6.0); HEMATOCRIT 45 % (39-51); HEMOGLOBIN 14.7 g/dL (13.5-17.5); LYMPHOCYTES # (AUTO) 0.8 K/uL (0.8-4.8); LYMPHOCYTES % (AUTO) 5.5 % (20.0-44.0); MEAN CORPUSCULAR HEMOGLOBIN 31 PG (26.0-33.0); MEAN CORPUSCULAR HGB CONC 33 g/dl (31.0-36.0); MEAN CORPUSCULAR VOLUME 93 fL (80-96); MONOCYTES # (AUTO) 1.4 K/uL (0.1-1.30); MONOCYTES % (AUTO) 9.5 % (2.0-12.0); NEUTROPHILS % (AUTO) 84.5 % (43.0-81.0); PLATELET COUNT (AUTO) 246 K/uL (150-450); RED BLOOD CELL COUNT(AUTO) 4.78 MIL/uL (4.5-6.0); RED CELL DISTRIBUTION WIDTH 13.7 % (11.5-15.0); WHITE BLOOD COUNT (AUTO) 15.3 K/uL (4.3-11.0)
[2024-03-25 08:24] LABS: ALANINE AMINOTRANSFERASE 118 U/L (12-78); ALKALINE PHOSPHATASE 82 U/L (46-116); ASPARTATE AMINOTRANSFERASE 70 U/L (15-37); BILIRUBIN,TOTAL 0.4 mg/dL (0.2-1.0); CALCIUM, SERUM 8.9 mg/dL (8.5-10.1); CARBON DIOXIDE 28 mmol/L (21-32); CHLORIDE 104 mmol/L (98-107); CREATININE 1.5 mg/dL (0.6-1.3); GLUCOSE 136 mg/dL (74-106); MAGNESIUM 1.8 mg/dL (1.8-2.4); PHOSPHORUS 3.7 mg/dL (2.5-4.9); POTASSIUM 5.1 mmol/L (3.5-5.1); SODIUM SERUM 138 mmol/L (136-145); TOTAL PROTEIN, SERUM 6.6 g/dL (6.4-8.2); UREA NITROGEN, BLOOD 31 mg/dL (7-18)
[2024-03-25 08:35] LABS: CREATINE KINASE, TOTAL 84 U/L (39-308)
[2024-03-25 08:46] LABS: ALBUMIN 1.8 g/dL (3.4-5.0)
[2024-03-25] MEDS: VANCOMYCIN 1 GM in IV D5W 250 ML IV SCH (09:03)
[2024-03-25 22:35] LABS: CREATININE, URINE 183.5 MG/DL (30.0-125.0); URINE TOTAL PROTEIN 100.3 mg/dL (0-11.9)
[2024-03-25 23:20] LABS: APPEARANCE,URINE CLEAR (CLEAR); BILIRUBIN,URINE NEGATIVE (NEGATIVE); BLOOD, URINE NEGATIVE Ery/uL (NEGATIVE); COLOR,URINE YELLOW (YELLOW); KETONES,URINE TRACE mg/dL (NEGATIVE); LEUKOCYTE ESTERASE ,URINE TRACE (NEGATIVE); NITRITE, URINE NEGATIVE (NEGATIVE); PROTEIN,URINE 1+ mg/dl (NEGATIVE); UGLUCOSE NEGATIVE (NEGATIVE); UROBILINOGEN,URINE 0.2 EU/dL (0.2)
[2024-03-26] VITALS (12 sets, daily range): BP systolic 118–133; BP diastolic 81–93; TEMP 97.5–97.9; O2SAT 88–96
[2024-03-26 01:46] LABS: ADD URINE CULTURE YES; BACTERIA,URINE 2+ /HPF (None Seen); MUCUS,URINE Moderate /LPF (None Seen); RBC,URINE NONE SEEN /HPF (0-2)
[2024-03-26 03:50] LABS: EOSINOPHIL,URINE None Seen
[2024-03-26 05:59] LABS: BASOPHILS % (AUTO) 0.2 % (0.0-2.0); EOSINOPHILS # (AUTO) 0.1 K/uL (0.0-0.7); EOSINOPHILS % (AUTO) 0.8 % (0.0-6.0); HEMATOCRIT 44 % (39-51); HEMOGLOBIN 14.2 g/dL (13.5-17.5); LYMPHOCYTES # (AUTO) 0.6 K/uL (0.8-4.8); LYMPHOCYTES % (AUTO) 4.9 % (20.0-44.0); MEAN CORPUSCULAR HEMOGLOBIN 30 PG (26.0-33.0); MEAN CORPUSCULAR HGB CONC 33 g/dl (31.0-36.0); MEAN CORPUSCULAR VOLUME 92 fL (80-96); MONOCYTES % (AUTO) 7.7 % (2.0-12.0); NEUTROPHILS # (AUTO) 10.8 K/uL (1.8-8.9); NEUTROPHILS % (AUTO) 86.4 % (43.0-81.0); PLATELET COUNT (AUTO) 272 K/uL (150-450); WHITE BLOOD COUNT (AUTO) 12.5 K/uL (4.3-11.0)
[2024-03-26 06:05] LABS: ALANINE AMINOTRANSFERASE 93 U/L (12-78); ALBUMIN 1.6 g/dL (3.4-5.0); ALKALINE PHOSPHATASE 77 U/L (46-116); ASPARTATE AMINOTRANSFERASE 33 U/L (15-37); BILIRUBIN,TOTAL 0.4 mg/dL (0.2-1.0); CALCIUM, SERUM 8.5 mg/dL (8.5-10.1); CARBON DIOXIDE 31 mmol/L (21-32); CHLORIDE 103 mmol/L (98-107); CREATININE 1.5 mg/dL (0.6-1.3); GLUCOSE 125 mg/dL (74-106); PHOSPHORUS 3.2 mg/dL (2.5-4.9); POTASSIUM 4.8 mmol/L (3.5-5.1); SODIUM SERUM 137 mmol/L (136-145); TOTAL PROTEIN, SERUM 6.3 g/dL (6.4-8.2); UREA NITROGEN, BLOOD 26 mg/dL (7-18)
[2024-03-26] MEDS: VANCOMYCIN HCL 1.25 GM in IV D5W 250 ML IV SCH (07:50)
[2024-03-26 08:07] LABS: PTH, INTACT 9 pg/mL (15-65)
[2024-03-26 15:54] LABS: D-DIMER 2.43 mg/L(FEU (0.17-0.50); INR 1.14 (0.91-1.10); PARTIAL THROMBOPLASTIN TIME 30.9 SEC (24.3-34.3)
[2024-03-27] VITALS (13 sets, daily range): BP systolic 119–144; BP diastolic 80–95; TEMP 98.1–98.6; O2SAT 92–98
[2024-03-27 06:11] LABS: *SPE A/G RATIO 0.6 (0.7-1.7); *SPE ALPHA-1-GLOBULIN 0.5 g/dL (0.0-0.4); *SPE BETA GLOBULIN 0.9 g/dL (0.7-1.3); *SPE GLOBULIN, TOTAL 3.2 g/dL (2.2-3.9); *SPE M-SPIKE Not Observed g/dL (Not Observed); *SPE PROTEIN TOTAL 5.2 g/dL (6.0-8.5); *SPEGAMMA GLOBULIN 0.8 g/dL (0.4-1.8)
[2024-03-27 07:29] LABS: BASOPHILS % (AUTO) 0.2 % (0.0-2.0); EOSINOPHILS # (AUTO) 0.3 K/uL (0.0-0.7); EOSINOPHILS % (AUTO) 2.5 % (0.0-6.0); HEMATOCRIT 43 % (39-51); HEMOGLOBIN 14.5 g/dL (13.5-17.5); LYMPHOCYTES # (AUTO) 0.8 K/uL (0.8-4.8); LYMPHOCYTES % (AUTO) 7.7 % (20.0-44.0); MEAN CORPUSCULAR HEMOGLOBIN 31 PG (26.0-33.0); MEAN CORPUSCULAR HGB CONC 34 g/dl (31.0-36.0); MEAN CORPUSCULAR VOLUME 91 fL (80-96); MONOCYTES % (AUTO) 9.9 % (2.0-12.0); NEUTROPHILS # (AUTO) 8.4 K/uL (1.8-8.9); NEUTROPHILS % (AUTO) 79.7 % (43.0-81.0); PLATELET COUNT (AUTO) 290 K/uL (150-450); RED BLOOD CELL COUNT(AUTO) 4.74 MIL/uL (4.5-6.0); RED CELL DISTRIBUTION WIDTH 14.1 % (11.5-15.0); WHITE BLOOD COUNT (AUTO) 10.5 K/uL (4.3-11.0)
[2024-03-27 08:00] LABS: CALCIUM, SERUM 8.4 mg/dL (8.5-10.1); CREATININE 1.3 mg/dL (0.6-1.3); POTASSIUM 4.6 mmol/L (3.5-5.1)
[2024-03-27 08:09] LABS: VIT D, 25-HYDROXY 55.1 ng/mL (30.0-100.0)
[2024-03-27 11:49] LABS: BAND % (MANUAL) 1 % (0.0-5.0); EOSINOPHILS % (MANUAL) 7 % (0-4); LYMPHOCYTES % (MANUAL) 6 % (16-48); MONOCYTES % (MANUAL) 11 % (0-11.0); MYELOCYTES % 3 % (0-0); NEUTROPHILS % (MANUAL) 72 (42-76); PLATELET ESTIMATE ADEQUATE
[2024-03-27] MEDS: VANCOMYCIN 750 MG in IV D5W 250 ML IV SCH (19:40)
[2024-03-28] VITALS (13 sets, daily range): BP systolic 118–130; BP diastolic 81–91; TEMP 97.5–98.2; O2SAT 92–97
[2024-03-28 07:25] LABS: BASOPHILS % (AUTO) 0.3 % (0.0-2.0); EOSINOPHILS # (AUTO) 0.4 K/uL (0.0-0.7); EOSINOPHILS % (AUTO) 4.3 % (0.0-6.0); HEMATOCRIT 45 % (39-51); HEMOGLOBIN 15.3 g/dL (13.5-17.5); LYMPHOCYTES # (AUTO) 0.8 K/uL (0.8-4.8); LYMPHOCYTES % (AUTO) 7.7 % (20.0-44.0); MEAN CORPUSCULAR HEMOGLOBIN 31 PG (26.0-33.0); MEAN CORPUSCULAR HGB CONC 34 g/dl (31.0-36.0); MEAN CORPUSCULAR VOLUME 92 fL (80-96); MONOCYTES # (AUTO) 0.9 K/uL (0.1-1.30); MONOCYTES % (AUTO) 9.2 % (2.0-12.0); NEUTROPHILS # (AUTO) 8.1 K/uL (1.8-8.9); NEUTROPHILS % (AUTO) 78.5 % (43.0-81.0); PLATELET COUNT (AUTO) 301 K/uL (150-450); RED BLOOD CELL COUNT(AUTO) 4.95 MIL/uL (4.5-6.0); RED CELL DISTRIBUTION WIDTH 14.6 % (11.5-15.0); WHITE BLOOD COUNT (AUTO) 10.3 K/uL (4.3-11.0)
[2024-03-28 07:36] LABS: INR 1.11 (0.91-1.10); PARTIAL THROMBOPLASTIN TIME 30.2 SEC (24.3-34.3); PROTHROMBIN TIME 11.7 SECS (9.2-11.1)
[2024-03-28 08:03] LABS: CARBON DIOXIDE 24 mmol/L (21-32); CHLORIDE 102 mmol/L (98-107); CREATININE 1.3 mg/dL (0.6-1.3); GLUCOSE 88 mg/dL (74-106); POTASSIUM 4.7 mmol/L (3.5-5.1); SODIUM SERUM 135 mmol/L (136-145); UREA NITROGEN, BLOOD 29 mg/dL (7-18)
[2024-03-28 08:23] LABS: D-DIMER 9.93 mg/L(FEU (0.17-0.50)
[2024-03-29] VITALS (14 sets, daily range): BP systolic 111–127; BP diastolic 72–86; TEMP 97.5–98.4; O2SAT 92–97
[2024-03-29 07:45] LABS: BASOPHILS % (AUTO) 0.1 % (0.0-2.0); EOSINOPHILS # (AUTO) 0.4 K/uL (0.0-0.7); HEMATOCRIT 45 % (39-51); HEMOGLOBIN 15.4 g/dL (13.5-17.5); LYMPHOCYTES # (AUTO) 0.7 K/uL (0.8-4.8); LYMPHOCYTES % (AUTO) 6.7 % (20.0-44.0); MEAN CORPUSCULAR HEMOGLOBIN 32 PG (26.0-33.0); MEAN CORPUSCULAR HGB CONC 35 g/dl (31.0-36.0); MEAN CORPUSCULAR VOLUME 91 fL (80-96); MONOCYTES # (AUTO) 0.8 K/uL (0.1-1.30); MONOCYTES % (AUTO) 7.8 % (2.0-12.0); NEUTROPHILS # (AUTO) 8.4 K/uL (1.8-8.9); NEUTROPHILS % (AUTO) 81.4 % (43.0-81.0); PLATELET COUNT (AUTO) 307 K/uL (150-450); RED BLOOD CELL COUNT(AUTO) 4.88 MIL/uL (4.5-6.0); RED CELL DISTRIBUTION WIDTH 14.4 % (11.5-15.0); WHITE BLOOD COUNT (AUTO) 10.3 K/uL (4.3-11.0)
[2024-03-29 08:34] LABS: BAND % (MANUAL) 4 % (0.0-5.0); EOSINOPHILS % (MANUAL) 2 % (0-4); LYMPHOCYTES % (MANUAL) 6 % (16-48); METAMYELOCYTES % 4 % (0-0); MONOCYTES % (MANUAL) 7 % (0-11.0); MYELOCYTES % 6 % (0-0); NEUTROPHILS % (MANUAL) 71 (42-76)
[2024-03-29 08:35] LABS: PLATELET ESTIMATE ADEQUATE
[2024-03-29 10:18] LABS: CARBON DIOXIDE 23 mmol/L (21-32); CHLORIDE 102 mmol/L (98-107); CREATININE 1.4 mg/dL (0.6-1.3); GLUCOSE 88 mg/dL (74-106); POTASSIUM 4.8 mmol/L (3.5-5.1); SODIUM SERUM 136 mmol/L (136-145); UREA NITROGEN, BLOOD 33 mg/dL (7-18)
[2024-03-30 01:59] VITALS: O2SAT 93
[2024-03-30 02:12] VITALS: O2SAT 97
[2024-03-30 07:30] VITALS: BP_SYST 106; BP_SYST 135; BP_DIAS 71; TEMP 98.4; TEMP 99.1; O2SAT 96; O2SAT 97
[2024-03-30 07:39] VITALS: O2SAT 94
[2024-03-30 07:57] VITALS: O2SAT 95
[2024-03-30 07:58] LABS: BASOPHILS % (AUTO) 0.4 % (0.0-2.0); EOSINOPHILS # (AUTO) 0.4 K/uL (0.0-0.7); EOSINOPHILS % (AUTO) 3.6 % (0.0-6.0); HEMATOCRIT 48 % (39-51); HEMOGLOBIN 15.8 g/dL (13.5-17.5); LYMPHOCYTES # (AUTO) 0.6 K/uL (0.8-4.8); LYMPHOCYTES % (AUTO) 5.7 % (20.0-44.0); MEAN CORPUSCULAR HEMOGLOBIN 30 PG (26.0-33.0); MEAN CORPUSCULAR HGB CONC 33 g/dl (31.0-36.0); MEAN CORPUSCULAR VOLUME 92 fL (80-96); MONOCYTES # (AUTO) 0.8 K/uL (0.1-1.30); MONOCYTES % (AUTO) 7.5 % (2.0-12.0); NEUTROPHILS # (AUTO) 8.6 K/uL (1.8-8.9); NEUTROPHILS % (AUTO) 82.8 % (43.0-81.0); PLATELET COUNT (AUTO) 325 K/uL (150-450); RED BLOOD CELL COUNT(AUTO) 5.21 MIL/uL (4.5-6.0); RED CELL DISTRIBUTION WIDTH 14.6 % (11.5-15.0); WHITE BLOOD COUNT (AUTO) 10.4 K/uL (4.3-11.0)
[2024-03-30 08:12] LABS: ALANINE AMINOTRANSFERASE 48 U/L (12-78); ALBUMIN 1.8 g/dL (3.4-5.0); ALKALINE PHOSPHATASE 84 U/L (46-116); ASPARTATE AMINOTRANSFERASE 23 U/L (15-37); BILIRUBIN,TOTAL 0.6 mg/dL (0.2-1.0); CALCIUM, SERUM 9.2 mg/dL (8.5-10.1); CARBON DIOXIDE 24 mmol/L (21-32); CHLORIDE 104 mmol/L (98-107); CREATININE 1.6 mg/dL (0.6-1.3); GLUCOSE 84 mg/dL (74-106); PHOSPHORUS 3.7 mg/dL (2.5-4.9); POTASSIUM 4.5 mmol/L (3.5-5.1); SODIUM SERUM 136 mmol/L (136-145); TOTAL PROTEIN, SERUM 6.6 g/dL (6.4-8.2); UREA NITROGEN, BLOOD 38 mg/dL (7-18)
[2024-03-30 09:49] LABS: ABG PCO2 35.1 mmHg (35.0-45.0); ABG PH 7.404 (7.350-7.450); ABG PO2 69.8 mmHg (75.0-100.0); SITE, ABG Right Radial
[2024-03-30 09:50] LABS: ABG BASE EXCESS -2.5 mmol/L; ABG OXYGEN SATURATION 93.1 % (92.0-98.5); ABG TOTAL HEMOGLOBIN 16.9 G/dL (13.5-18.0); COHb 1.1 % (0.5-1.5); MetHb 0.2 % (0.0-1.5); O2Hb 91.9 % (94.0-97.0); VENT MODE, BG 2 LPM NC
[2024-03-30 13:33] LABS: EOSINOPHILS % (MANUAL) 4 % (0-4); LYMPHOCYTES % (MANUAL) 8 % (16-48); MONOCYTES % (MANUAL) 8 % (0-11.0); NEUTROPHILS % (MANUAL) 80 (42-76)
[2024-03-30 13:34] LABS: PLATELET ESTIMATE ADEQUATE
[2024-03-30] MEDS ORDERED: PROSOURCE / PROSTAT (PYXIS) 30 ML UDC PO SCH (17:00)
[2024-03-30 19:07] LABS: LEGIONELLA PNEUMOPHILIA AB Non Reactive (Non Reactive)
[2024-03-30 21:06] LABS: *MYCOPLASMA PNEUMONIAE IgG 416 U/mL (0-99); *MYCOPLASMA PNEUMONIAE IgM <770 U/mL (0-769)
== END 2024-03-30 13:35 | DRG 871 ==
LOC: ER 20:19 → TRANSITION 03-24 05:11 → TELE 03-24 06:21 → MED 03-26 10:20
DX: A41.9 Sepsis, unspecified organism (principal); J15.9 Unspecified bacterial pneumonia; J96.01 Acute respiratory failure with hypoxia; N17.0 Acute kidney failure with tubular necrosis; C79.51 Secondary malignant neoplasm of bone; C78.02 Secondary malignant neoplasm of left lung; C78.01 Secondary malignant neoplasm of right lung; C77.9 Secondary and unspecified malignant neoplasm of lymph node, unspecified; Z85.528 Personal history of other malignant neoplasm of kidney; Z90.5 Acquired absence of kidney; N18.9 Chronic kidney disease, unspecified; I50.9 Heart failure, unspecified; Z20.822 Contact with and (suspected) exposure to COVID-19; M89.8X9 Other specified disorders of bone, unspecified site; Z86.711 Personal history of pulmonary embolism; Z79.01 Long term (current) use of anticoagulants; Z87.442 Personal history of urinary calculi; E83.9 Disorder of mineral metabolism, unspecified; E83.52 Hypercalcemia; E88.09 Other disorders of plasma-protein metabolism, not elsewhere classified
CPT/HCPCS: 36415; 36600; 71045-TC; 71250-TC; 76770-TC; 80048-TC; 80053-TC; 80202-TC; 81001; 82306; 82550-TC; 82570-TC; 82803-TC; 83605-TC; 83615-TC; 83735-TC; 83880; 83970; 84100-TC; 84155; 84165; 84300-TC; 84484-TC; 85025-TC; 85378-TC; 85396; 86713; 86738; 87040-TC; 87086-TC; 87449; 93307-TC; 93970-TC; 94760-TC; 94761-TC; 94799-TC; 97110-TC; 97530-TC; A4223; G0378; J0692; J0696; J1940; J1956; J3370; J3371; J7030; J7040; J7050; J7060; J7120

== ENCOUNTER 2024-04-11 00:30 | Inpatient (IN) | payer MEDICARE, OTHER ==
[~2024-04-11] VITALS: Ht 172.7 cm; Wt 77.3 kg
[2024-04-11] VITALS (83 sets, daily range): BP systolic 48–126; BP diastolic 25–105; TEMP 95–97.9; O2SAT 91–100
[~2024-04-11 00:30] MED LIST changes: -ALBU18HF2 INH; -APIX5TAB4 PO; -CALC3.7S NS; -IBUP-1955 PO; +TEST200V3 IM; +[UNRECOGNIZED DRUG - OTHER] PO
[2024-04-11] MEDS ORDERED: CEFEPIME 1 GM VIAL ONE (00:50)
[2024-04-11] MEDS ORDERED: ACETAMINOPHEN ES 500 MG TABLET ONE (00:50)
[2024-04-11] MEDS: ACETAMINOPHEN 325 MG TABLET PO ONE (00:54)
[2024-04-11] MEDS: CEFEPIME 1 GM in IV D5W 50 ML IV ONE (00:54)
[2024-04-11] MEDS: IV NS 0.9% 1,000 ML BAG IV ONE ×2 (00:56→02:05)
[2024-04-11] MEDS ORDERED: IV NS 0.9% 1,000 ML BAG IV ONE (01:00)
[2024-04-11 01:06] LABS: HEMOGLOBIN 15.4 g/dL (13.5-17.5); LYMPHOCYTES # (AUTO) 0.4 K/uL (0.8-4.8); MEAN CORPUSCULAR VOLUME 89 fL (80-96)
[2024-04-11 01:16] LABS: BASOPHILS % (AUTO) 0.2 % (0.0-2.0); EOSINOPHILS % (AUTO) 1.3 % (0.0-6.0); HEMATOCRIT 45 % (39-51); MEAN CORPUSCULAR HEMOGLOBIN 30 PG (26.0-33.0); MEAN CORPUSCULAR HGB CONC 34 g/dl (31.0-36.0); MONOCYTES # (AUTO) 1.1 K/uL (0.1-1.30); MONOCYTES % (AUTO) 68.8 % (2.0-12.0); NEUTROPHILS % (AUTO) 1.7 % (43.0-81.0); PLATELET COUNT (AUTO) 179 K/uL (150-450); RED BLOOD CELL COUNT(AUTO) 5.08 MIL/uL (4.5-6.0)
[2024-04-11 01:22] LABS: PARTIAL THROMBOPLASTIN TIME 48.4 SEC (24.3-34.3); PROTHROMBIN TIME 20.3 SECS (9.2-11.1)
[2024-04-11 01:27] LABS: WHITE BLOOD COUNT (AUTO) 1.6 K/uL (4.3-11.0)
[2024-04-11 01:30] LABS: CALCIUM, SERUM 7.4 mg/dL (8.5-10.1); CARBON DIOXIDE 18 mmol/L (21-32); CHLORIDE 97 mmol/L (98-107); CREATININE 4.7 mg/dL (0.6-1.3); GLUCOSE 134 mg/dL (74-106); POTASSIUM 4.3 mmol/L (3.5-5.1); SODIUM SERUM 130 mmol/L (136-145); UREA NITROGEN, BLOOD 53 mg/dL (7-18)
[2024-04-11 01:45] LABS: ALANINE AMINOTRANSFERASE 37 U/L (12-78); ALKALINE PHOSPHATASE 65 U/L (46-116); ASPARTATE AMINOTRANSFERASE 39 U/L (15-37); BILIRUBIN,DIRECT 0.4 mg/dL (0.0-0.2); BILIRUBIN,TOTAL 0.8 mg/dL (0.2-1.0); TOTAL PROTEIN, SERUM 5.4 g/dL (6.4-8.2)
[2024-04-11 01:50] LABS: ALBUMIN 1.4 g/dL (3.4-5.0)
[2024-04-11] MEDS ORDERED: ALBUMIN 25% 50 ML IV ONE (01:58)
[2024-04-11] MEDS ORDERED: VANCOMYCIN 1 GM /D5W 250 ML PB IV ONE (02:10)
[2024-04-11] MEDS ORDERED: ASPIRIN 325 MG TABLET ONE (02:10)
[2024-04-11] MEDS: VANCOMYCIN 1 GM in IV D5W 250 ML IV ONE (02:11)
[2024-04-11] MEDS: ASPIRIN 325 MG TABLET PO ONE (02:11)
[2024-04-11] MEDS: ALBUMIN 25% 12.5 GM/50 ML BOTTLE IV ONE (02:12)
[2024-04-11 02:21] LABS: BAND % (MANUAL) 1 % (0.0-5.0); EOSINOPHILS % (MANUAL) 1 % (0-4); LYMPHOCYTES % (MANUAL) 37 % (16-48); METAMYELOCYTES % 1 % (0-0); MONOCYTES % (MANUAL) 59 % (0-11.0); NEUTROPHILS % (MANUAL) 1 (42-76)
[2024-04-11 02:25] LABS: PLATELET ESTIMATE ADEQUATE
[2024-04-11] MEDS ORDERED: PHENYLEPHRINE 10 MG/ML VIAL ONE (02:27)
[2024-04-11] MEDS ORDERED: MAG HYDROX/AL HYDROX/SIMETH 30 ML UDC PO PRN (02:30)
[2024-04-11] MEDS ORDERED: ZOLPIDEM TARTRATE 5 MG TABLET PO PRN (02:30)
[2024-04-11] MEDS ORDERED: Z GUARD REMEDY 4 OZ OINT TP PRN (02:30)
[2024-04-11] MEDS ORDERED: ACETAMINOPHEN 325 MG TABLET PO PRN (02:30)
[2024-04-11] MEDS ORDERED: MAGNESIUM HYDROXIDE 30 ML UDC PO PRN (02:30)
[2024-04-11] MEDS: PHENYLEPHRINE 100 MG in IV NS 0.9% 240 ML IV PRN (02:39)
[2024-04-11 02:47] LABS: ABG BASE EXCESS -10.6 mmol/L; ABG OXYGEN SATURATION 97.8 % (92.0-98.5); ABG PCO2 24.6 mmHg (35.0-45.0); ABG PH 7.343 (7.350-7.450); ABG PO2 111.1 mmHg (75.0-100.0); ABG TOTAL HEMOGLOBIN 14.5 G/dL (13.5-18.0); COHb 0.5 % (0.5-1.5); MetHb 0.5 % (0.0-1.5); O2Hb 96.8 % (94.0-97.0); SITE, ABG Left Brachial; VENT MODE, BG Nasal Cannula
[2024-04-11] MEDS: HYDROCORTISONE SOD SUCCINATE 100 MG/2 ML VIAL IV ONE (03:01)
[2024-04-11] MEDS: SODIUM BICARBONATE SYR 50 MEQ/50 ML DISP.SYRIN IV ONE ×2 (03:01→06:30)
[2024-04-11] MEDS ORDERED: NOREPINEPHRINE 4 MG/4 ML AMPUL IV ONE (04:11)
[2024-04-11] MEDS: NOREPINEPHRINE 32 MG in IV NS 0.9% 218 ML IV PRN ×2 (04:16→06:35)
[2024-04-11] MEDS: IV NS 0.9% 1,000 ML IV PRN (04:37)
[2024-04-11] MEDS ORDERED: VASOPRESSIN INJ 40 UNIT in IV NS 0.9% 38 ML IV PRN (05:30)
[2024-04-11] MEDS: ALBUMIN 25% 12.5 GM in PREMIX 1 EA IV ONE (05:35)
[2024-04-11] MEDS: ALBUMIN 25% 50 ML IV ONE (05:50)
[2024-04-11] MEDS: IPRATROPIUM NEB FS 0.5 MG/2.5 ML AMPUL.NEB NEB SCH (05:58)
[2024-04-11] MEDS: ALBUTEROL FS 2.5 MG/3 ML VIAL.NEB NEB SCH (05:58)
[2024-04-11 06:14] LABS: ABG BASE EXCESS -13.7 mmol/L; ABG OXYGEN SATURATION 99.7 % (92.0-98.5); ABG PCO2 25.2 mmHg (35.0-45.0); ABG PH 7.265 (7.350-7.450); ABG PO2 358.7 mmHg (75.0-100.0); AaDO2 329.1 mmHg; MetHb 0.5 % (0.0-1.5); O2Hb 98.2 % (94.0-97.0); SITE, ABG Left Brachial; VENT MODE, BG NRB Mask
[2024-04-11] MEDS: ONDANSETRON HCL/PF 4 MG/2 ML VIAL IVP PRN (06:21)
[2024-04-11] MEDS: Sodium Bicarbonate 100 MEQ in IV D5/ 0.9% NACL 1,000 ML IV PRN (06:42)
[2024-04-11] MEDS ORDERED: Sodium Bicarbonate 100 MEQ in IV D5/ 0.9% NACL 1,000 ML IV SCH (06:43)
[2024-04-11] MEDS: Sodium Bicarbonate 100 MEQ in IV D5/ 0.9% NACL 1,000 ML IV SCH (06:51)
[2024-04-11] MEDS: LACTOBACILLUS RHAMNOSUS GG 1 EACH CAP.SPRINK PO SCH (08:19)
[2024-04-11] MEDS: ASPIRIN 81 MG TAB.CHEW PO SCH (08:19)
[2024-04-11] MEDS: HEPARIN SODIUM, PORCINE 5000 UNITS/1 ML VIAL SQ SCH (08:22)
[2024-04-11] MEDS ORDERED: LOPE2TAB25 PO (08:35)
[2024-04-11] MEDS ORDERED: TEST200V3 IM (08:35)
[2024-04-11] MEDS ORDERED: MAGN400O6 PO (08:35)
[2024-04-11] MEDS ORDERED: ALBU18HF2 INH (08:35)
[2024-04-11] MEDS ORDERED: ACET-868 PO ×2 (08:35)
[2024-04-11] MEDS ORDERED: APIX5TAB PO (08:35)
[2024-04-11] MEDS ORDERED: IPRA3AMP23 IH (08:35)
[2024-04-11] MEDS ORDERED: PETR113O TP (08:35)
[2024-04-11] MEDS ORDERED: LEVO750T46 PO (08:35)
[2024-04-11] MEDS ORDERED: LACT1CAP71 PO (08:35)
[2024-04-11] MEDS ORDERED: FLUT1DIS3 IH (08:35)
[2024-04-11] MEDS ORDERED: BISA10SU11 RC (08:35)
[2024-04-11] MEDS ORDERED: ONDA4TAB5 PO (08:35)
[2024-04-11] MEDS ORDERED: NA P133E RC (08:35)
[2024-04-11] MEDS ORDERED: ACIDOPHILUS/BULGARICUS 1 EACH GRAN.PACK PO SCH (09:00)
[2024-04-11] MEDS: VANCOMYCIN 500 MG in IV D5W 100 ML IV ONE (12:55)
[2024-04-11] MEDS: HYDROCORTISONE SOD SUCCINATE 100 MG/2 ML VIAL IV SCH (12:55)
[2024-04-11] MEDS: METRONIDAZOLE 500MG/ NS 100ML 500 MG in PREMIX 1 EA IV SCH (13:00)
[2024-04-12] VITALS (106 sets, daily range): BP systolic 40–171; BP diastolic 13–114; TEMP 97.5–103.6; O2SAT 86–100
[2024-04-12 05:15] LABS: BASOPHILS % (AUTO) 0.4 % (0.0-2.0); EOSINOPHILS % (AUTO) 0.4 % (0.0-6.0); HEMATOCRIT 54 % (39-51); HEMOGLOBIN 17.9 g/dL (13.5-17.5); LYMPHOCYTES # (AUTO) 0.4 K/uL (0.8-4.8); LYMPHOCYTES % (AUTO) 8.4 % (20.0-44.0); MEAN CORPUSCULAR HEMOGLOBIN 30 PG (26.0-33.0); MEAN CORPUSCULAR HGB CONC 33 g/dl (31.0-36.0); MEAN CORPUSCULAR VOLUME 90 fL (80-96); MONOCYTES # (AUTO) 1.3 K/uL (0.1-1.30); MONOCYTES % (AUTO) 24.9 % (2.0-12.0); NEUTROPHILS # (AUTO) 3.3 K/uL (1.8-8.9); NEUTROPHILS % (AUTO) 65.9 % (43.0-81.0); PLATELET COUNT (AUTO) 160 K/uL (150-450); RED CELL DISTRIBUTION WIDTH 14.6 % (11.5-15.0); WHITE BLOOD COUNT (AUTO) 5.1 K/uL (4.3-11.0)
[2024-04-12 06:09] LABS: CREATINE KINASE, TOTAL 215 U/L (39-308)
[2024-04-12 07:32] LABS: ALANINE AMINOTRANSFERASE 53 U/L (12-78); ALKALINE PHOSPHATASE 74 U/L (46-116); ASPARTATE AMINOTRANSFERASE 45 U/L (15-37); BILIRUBIN,TOTAL 0.6 mg/dL (0.2-1.0); CALCIUM, SERUM 6.7 mg/dL (8.5-10.1); CARBON DIOXIDE 16 mmol/L (21-32); CHLORIDE 105 mmol/L (98-107); CREATININE 4.6 mg/dL (0.6-1.3); GLUCOSE 222 mg/dL (74-106); MAGNESIUM 2.1 mg/dL (1.8-2.4); PHOSPHORUS 6.3 mg/dL (2.5-4.9); POTASSIUM 5.2 mmol/L (3.5-5.1); SODIUM SERUM 138 mmol/L (136-145); TOTAL PROTEIN, SERUM 5.2 g/dL (6.4-8.2); UREA NITROGEN, BLOOD 67 mg/dL (7-18)
[2024-04-12 07:49] LABS: BAND % (MANUAL) 5 % (0.0-5.0); LYMPHOCYTES % (MANUAL) 16 % (16-48); MONOCYTES % (MANUAL) 28 % (0-11.0); NEUTROPHILS % (MANUAL) 51 (42-76); PLATELET ESTIMATE ADEQUATE
[2024-04-12 07:50] LABS: ANISOCYTOSIS 1+
[2024-04-12 07:57] LABS: ALBUMIN 1.2 g/dL (3.4-5.0)
[2024-04-12] MEDS ORDERED: ONDANSETRON 4 MG TAB.RAPDIS PO PRN (09:00)
[2024-04-12 10:08] LABS: ABG BASE EXCESS -10.5 mmol/L; ABG OXYGEN SATURATION 93.7 % (92.0-98.5); ABG PCO2 21.6 mmHg (35.0-45.0); ABG PH 7.355 (7.350-7.450); ABG PO2 69.8 mmHg (75.0-100.0); ABG TOTAL HEMOGLOBIN 20.2 G/dL (13.5-18.0); AaDO2 161.8 mmHg; COHb 0.3 % (0.5-1.5); MetHb 0.6 % (0.0-1.5); O2Hb 92.9 % (94.0-97.0); SITE, ABG Left Brachial; VENT MODE, BG 4 L NC
[2024-04-12] MEDS: CEFEPIME 1 GM in IV D5W 50 ML IV SCH (10:11)
[2024-04-12] MEDS: APIXABAN 5 MG TABLET PO SCH (10:14)
[2024-04-12] MEDS: FLUTICASONE/VILANTEROL 1 EACH BLST.W.DEV IH SCH (10:14)
[2024-04-12] MEDS ORDERED: IV NS 0.9% 1,000 ML IV ONE (10:30)
[2024-04-12] MEDS: PROPOFOL 100 ML IV PRN (12:00)
[2024-04-12] MEDS: IV NS 0.9% 500 ML IV ONE ×2 (12:02→15:05)
[2024-04-12 12:59] LABS: ABG BASE EXCESS -11.4 mmol/L; ABG OXYGEN SATURATION 99.6 % (92.0-98.5); ABG PCO2 26.5 mmHg (35.0-45.0); ABG PH 7.298 (7.350-7.450); ABG PO2 449.3 mmHg (75.0-100.0); ABG TOTAL HEMOGLOBIN 20.3 G/dL (13.5-18.0); AaDO2 237.2 mmHg; COHb 0.2 % (0.5-1.5); MetHb 1.2 % (0.0-1.5); O2Hb 98.2 % (94.0-97.0); PEEP,BG 5 cm H2O; SITE, ABG Left Brachial; VT, ABG 550 mL
[2024-04-12] MEDS: Sodium Bicarbonate 100 MEQ in IV D5 / 0.2% NACL 1,000 ML IV SCH (13:17)
[2024-04-12] MEDS: ACETAMINOPHEN 650 MG/SUPP.RECT RC PRN (13:43)
[2024-04-12] MEDS: VASOPRESSIN INJ 40 UNIT in IV NS 0.9% 38 ML IV PRN (14:50)
[2024-04-12] MEDS: IV NS 0.9% 1,000 ML IV ONE (17:59)
[2024-04-12] MEDS: IV NS 0.9% 500 ML IV STA (19:53)
[2024-04-12] MEDS: IV NS 0.9% 250 ML IV PRN (21:00)
[2024-04-13] VITALS (122 sets, daily range): BP systolic 34–106; BP diastolic 14–83; TEMP 97.8–103; O2SAT 27–100
[2024-04-13] MEDS: VASOPRESSIN INJ 20 UNIT/ML VIAL ONE (01:08)
[2024-04-13] MEDS: IV NS 0.9% 1,000 ML IV ONE (01:40)
[2024-04-13 05:15] LABS: CARBON DIOXIDE 13 mmol/L (21-32); CHLORIDE 105 mmol/L (98-107); GLUCOSE 191 mg/dL (74-106); SODIUM SERUM 138 mmol/L (136-145)
[2024-04-13 05:24] LABS: CALCIUM, SERUM 5.3 mg/dL (8.5-10.1); POTASSIUM 6.6 mmol/L (3.5-5.1); UREA NITROGEN, BLOOD 95 mg/dL (7-18)
[2024-04-13] MEDS: DEXTROSE 50%-WATER 50 ML DISP.SYRIN IVP ONE (05:47)
[2024-04-13] MEDS: SODIUM BICARBONATE SYR 50 MEQ/50 ML DISP.SYRIN IV ONE (05:47)
[2024-04-13] MEDS: INSULIN REGULAR, HUMAN 100 UNIT/ML 10 ML VIAL IV ONE (05:48)
[2024-04-13] MEDS: Calcium Gluconate 0.465 MEQ/ML VIAL IV ONE (06:06)
[2024-04-13] MEDS: Calcium Gluconate 1GM/10ML 4.65 MEQ in IV NS 0.9% 100 ML IV ONE (06:06)
[2024-04-13 07:07] LABS: BASOPHILS # (AUTO) 0.1 K/uL (0.0-0.2); BASOPHILS % (AUTO) 0.5 % (0.0-2.0); EOSINOPHILS # (AUTO) 0.1 K/uL (0.0-0.7); EOSINOPHILS % (AUTO) 0.4 % (0.0-6.0); HEMATOCRIT 53 % (39-51); LYMPHOCYTES # (AUTO) 1.2 K/uL (0.8-4.8); LYMPHOCYTES % (AUTO) 7.5 % (20.0-44.0); MEAN CORPUSCULAR HEMOGLOBIN 29 PG (26.0-33.0); MEAN CORPUSCULAR HGB CONC 32 g/dl (31.0-36.0); MEAN CORPUSCULAR VOLUME 90 fL (80-96); MONOCYTES % (AUTO) 0.2 % (2.0-12.0); NEUTROPHILS # (AUTO) 14.7 K/uL (1.8-8.9); NEUTROPHILS % (AUTO) 91.4 % (43.0-81.0); RED BLOOD CELL COUNT(AUTO) 5.85 MIL/uL (4.5-6.0); RED CELL DISTRIBUTION WIDTH 14.9 % (11.5-15.0); WHITE BLOOD COUNT (AUTO) 16.1 K/uL (4.3-11.0)
[2024-04-13 07:15] LABS: PLATELET COUNT (AUTO) 47 K/uL (150-450)
[2024-04-13 08:13] LABS: LYMPHOCYTES % (MANUAL) 15 % (16-48); NEUTROPHILS % (MANUAL) 58 (42-76)
[2024-04-13 08:14] LABS: ANISOCYTOSIS 1+; BASOPHILS % (MANUAL) 0 % (0.0-2.0); EOSINOPHILS % (MANUAL) 0 % (0-4); MONOCYTES % (MANUAL) 27 % (0-11.0); PLATELET ESTIMATE DECREASED
[2024-04-13] MEDS: SODIUM BICARBONATE SYR 50 MEQ/50 ML DISP.SYRIN IV STA (10:46)
[2024-04-13] MEDS: Sodium Bicarbonate 150 MEQ in IV D5 / 0.2% NACL 1,000 ML IV SCH (11:11)
[2024-04-13 11:47] LABS: VANCOMYCIN,RANDOM 9 ug/mL (20-30); VANCOMYCIN,TROUGH 9 ug/ml (10-20)
[2024-04-13] MEDS ORDERED: VANCOMYCIN 750 MG in IV D5W 250 ML IV SCH (12:00)
[2024-04-13] MEDS ORDERED: VANCOMYCIN 500 MG in IV D5W 100 ML IV PRN (12:00)
[2024-04-13] MEDS: ALBUMIN 25% 25 GM in PREMIX 1 EA IV PRN (12:35)
[2024-04-13] MEDS: VANCOMYCIN 1 GM in IV D5W 250 ML IV ONE (14:56)
[2024-04-14] VITALS (18 sets, daily range): BP systolic 51–89; BP diastolic 22–69; TEMP 99.5; O2SAT 30–78
[2024-04-14] MEDS ORDERED: ALBUMIN 25% 25 GM in PREMIX 1 EA IV STA (00:41)
[2024-04-14 01:12] LABS: PTH, INTACT 90 pg/mL (15-65)
[2024-04-14] MEDS ORDERED: ALBUMIN 25% 50 ML IV ONE ×2 (01:17→01:19)
[2024-04-14] MEDS: ALBUMIN 25% 25 GM in PREMIX 1 EA IV STA (01:23)
[2024-04-14] MEDS ORDERED: ALBUMIN 25% 12.5 GM in PREMIX 1 EA IV PRN (01:30)
[2024-04-14] MEDS ORDERED: ALBUMIN 25% 12.5 GM in PREMIX 1 EA IV ONE (01:30)
[2024-04-14] MEDS ORDERED: AMIODARONE 150 MG/3 ML VIAL IV ONE ×2 (01:57→02:06)
[2024-04-14] MEDS: AMIODARONE 150 MG in IV D5W 100 ML IV ONE (01:59)
[2024-04-14] MEDS: AMIODARONE 450 MG in IV D5W 241 ML IV PRN (02:14)
[2024-04-14 04:52] LABS: BASOPHILS # (AUTO) 0.2 K/uL (0.0-0.2); BASOPHILS % (AUTO) 0.8 % (0.0-2.0); EOSINOPHILS # (AUTO) 0.4 K/uL (0.0-0.7); EOSINOPHILS % (AUTO) 2.2 % (0.0-6.0); HEMATOCRIT 45 % (39-51); HEMOGLOBIN 13.7 g/dL (13.5-17.5); LYMPHOCYTES % (AUTO) 9.9 % (20.0-44.0); MEAN CORPUSCULAR HEMOGLOBIN 30 PG (26.0-33.0); MEAN CORPUSCULAR HGB CONC 31 g/dl (31.0-36.0); MEAN CORPUSCULAR VOLUME 97 fL (80-96); MONOCYTES # (AUTO) 0.1 K/uL (0.1-1.30); MONOCYTES % (AUTO) 0.5 % (2.0-12.0); NEUTROPHILS # (AUTO) 17.2 K/uL (1.8-8.9); NEUTROPHILS % (AUTO) 86.6 % (43.0-81.0); RED CELL DISTRIBUTION WIDTH 16.4 % (11.5-15.0); WHITE BLOOD COUNT (AUTO) 19.9 K/uL (4.3-11.0)
[2024-04-14 05:11] LABS: CHLORIDE 101 mmol/L (98-107); GLUCOSE 149 mg/dL (74-106); SODIUM SERUM 142 mmol/L (136-145)
[2024-04-14 05:56] LABS: CALCIUM, SERUM 5.8 mg/dL (8.5-10.1); CARBON DIOXIDE 8 mmol/L (21-32); POTASSIUM 8.8 mmol/L (3.5-5.1)
[2024-04-14 05:57] LABS: CREATININE 7.7 mg/dL (0.6-1.3); UREA NITROGEN, BLOOD 80 mg/dL (7-18)
[2024-04-14 05:58] LABS: PLATELET COUNT (AUTO) 29 K/uL (150-450)
[2024-04-14] MEDS ORDERED: VANCOMYCIN 500 MG in IV D5W 100 ML IV PRN (06:00)
[2024-04-14] MEDS ORDERED: DEXTROSE 50%-WATER 50 ML DISP.SYRIN ONE (06:04)
[2024-04-14] MEDS ORDERED: SODIUM BICARBONATE SYR 50 MEQ/50 ML DISP.SYRIN ONE (06:12)
[2024-04-14 06:25] LABS: BAND % (MANUAL) 2 % (0.0-5.0); EOSINOPHILS % (MANUAL) 1 % (0-4); LYMPHOCYTES % (MANUAL) 12 % (16-48); MONOCYTES % (MANUAL) 2 % (0-11.0); NEUTROPHILS % (MANUAL) 83 (42-76)
[2024-04-14 06:26] LABS: PLATELET ESTIMATE DECREASED
[2024-04-14 11:09] LABS: HEPATITIS B SURFACE AB Non Reactive (.)
[2024-04-14] MEDS ORDERED: CALCIUM CHLORIDE 1,000 MG/10 ML DISP.SYRIN IV ONE (11:26)
[2024-04-14 13:10] LABS: *SPE A/G RATIO 0.7 (0.7-1.7); *SPE ALBUMIN 1.7 g/dL (2.9-4.4); *SPE ALPHA-1-GLOBULIN 0.3 g/dL (0.0-0.4); *SPE ALPHA-2-GLOBULIN 0.9 g/dL (0.4-1.0); *SPE BETA GLOBULIN 0.6 g/dL (0.7-1.3); *SPE GLOBULIN, TOTAL 2.3 g/dL (2.2-3.9); *SPE M-SPIKE 0.1 g/dL (Not Observed); *SPEGAMMA GLOBULIN 0.5 g/dL (0.4-1.8)
== END 2024-04-14 14:10 | DRG 871 ==
LOC: ER 00:32 → ICU 03:06
PROVIDERS: ADMIT Nurse Practitioner Acute Care; ATTEND Internal Medicine
PROC: 02HV33Z Insertion of Infusion Device into Superior Vena Cava, Percutaneous Approach (ICD-10-PCS; 2024-04-11)
PROC: B548ZZA Ultrasonography of Superior Vena Cava, Guidance (ICD-10-PCS; 2024-04-11)
PROC: 5A1945Z Respiratory Ventilation, 24-96 Consecutive Hours (ICD-10-PCS; principal; 2024-04-12)
PROC: 0BH17EZ Insertion of Endotracheal Airway into Trachea, Via Natural or Artificial Opening (ICD-10-PCS; 2024-04-12)
PROC: 05HM33Z Insertion of Infusion Device into Right Internal Jugular Vein, Percutaneous Approach (ICD-10-PCS; 2024-04-13)
PROC: B543ZZA Ultrasonography of Right Jugular Veins, Guidance (ICD-10-PCS; 2024-04-13)
PROC: 5A1D70Z Performance of Urinary Filtration, Intermittent, Less than 6 Hours Per Day (ICD-10-PCS; 2024-04-13)
DX: A41.9 Sepsis, unspecified organism (principal); E43 Unspecified severe protein-calorie malnutrition; J96.01 Acute respiratory failure with hypoxia; N17.0 Acute kidney failure with tubular necrosis; R65.21 Severe sepsis with septic shock; I21.A1 Myocardial infarction type 2; J15.9 Unspecified bacterial pneumonia; E87.1 Hypo-osmolality and hyponatremia; E87.20 Acidosis, unspecified; D70.9 Neutropenia, unspecified; E86.1 Hypovolemia; I48.91 Unspecified atrial fibrillation; N18.9 Chronic kidney disease, unspecified; Z85.528 Personal history of other malignant neoplasm of kidney; E88.09 Other disorders of plasma-protein metabolism, not elsewhere classified; E87.5 Hyperkalemia; I50.9 Heart failure, unspecified; Z86.711 Personal history of pulmonary embolism; Z87.01 Personal history of pneumonia (recurrent); Z90.5 Acquired absence of kidney; A08.4 Viral intestinal infection, unspecified; Z85.118 Personal history of other malignant neoplasm of bronchus and lung; Z68.25 Body mass index [BMI] 25.0-25.9, adult; R74.8 Abnormal levels of other serum enzymes
CPT/HCPCS: 31720; 36415; 36569; 36600; 71045-TC; 74018; 76770-TC; 80048-TC; 80053-TC; 80076-TC; 80202-TC; 82533; 82550-TC; 82803-TC; 82962-TC; 83605-TC; 83735-TC; 83970; 84100-TC; 84155; 84165; 84484-TC; 85025-TC; 85378-TC; 85730-TC; 86706; 87040-TC; 87340; 90935-TC; 94002-TC; 94003-TC; 94799-TC; A4216; A4223; G0378; J0171; J0282; J0610; J0692; J1644; J1720; J1815; J2405; J3370; J3371; J3475; J3490; J7030; J7040; J7042; J7050; J7060; P9047; Q0162